=== PATIENT | male | born 1995 | race Caucasian/White ===

== ENCOUNTER 2021-10-16 23:48 | Inpatient (IN) | payer BC ==
[~2021-10-16] VITALS: Ht 172.7 cm; Wt 86.6 kg
--- NOTE | 2021-10-16 23:50 | NUR ---
BIBRA FOR C/O OF TACHYCARDIA AND PALPITATIONS. UPON EMS ARRIVAL HR SUSTAINED IN THE 170S. ADENOSINE GIVEN EN ROUTE BOWL TURNER. DENIES DRUG OR ALCOHOL USE BUT ENDORSES RECENT ADDERAL USE X3 DAYS. LAST TAKEN AT 1500. DENIES ANY C/P OR SOB. CHANGED INTO GOWN AND PLACED ON PURCHASING ASSOCIATE AND PULSE OX AND PT TACHYCARDIC. WAS AT BEDSIDE FOR EVAL.
--- NOTE | 2021-10-16 23:57 | NUR ---
EMT AT BEDSIDE FOR EKG
[2021-10-17] MEDS ORDERED: DILTIAZEM HCL 50 MG IV ONE (00:08)
[2021-10-17] MEDS ORDERED: DILTIAZEM HCL 25 MG IV ONE (00:08)
--- NOTE | 2021-10-17 00:28 | NUR ---
CARDIZEM DRIP INITIATED AT 5MG/HR PER PROTOCOL AT RAC 18G. WILL CONTINUE TO ASSESS HR AND TITRATE PER PROTOCOL.
[2021-10-17] MEDS ORDERED: DILTIAZEM HCL 50 MG IV IV ONE (00:30)
[2021-10-17] MEDS ORDERED: DILTIAZEM HCL IV 125 MG in IV NS 0.9% 100 ML IV PRN (00:30)
--- NOTE | 2021-10-17 00:31 | NUR ---
IVELISSE NORRIS HELD PER MD ORDER.
--- NOTE | 2021-10-17 00:38 | NUR ---
CARDIZEM DRIP REINITIATED PER MD ORDER AT 5MG/HR
--- NOTE | 2021-10-17 00:48 | NUR ---
CARDIZEM DRIP TITRATED FROM 5MG UP TO 10MG PER PROTOCOL DUE TO HR SUSTAINED IN THE 130S.
[2021-10-17] MEDS ORDERED: ACETAMINOPHEN 325 MG TABLET PO PRN (01:00)
[2021-10-17] MEDS ORDERED: ONDANSETRON HCL/PF 4 MG/2 ML VIAL IVP PRN (01:00)
[2021-10-17] MEDS ORDERED: ZOLPIDEM TARTRATE 5 MG TABLET PO PRN (01:00)
[2021-10-17] MEDS ORDERED: MAGNESIUM HYDROXIDE 30 ML UDC PO PRN (01:00)
[2021-10-17] MEDS ORDERED: MAG HYDROX/AL HYDROX/SIMETH 30 ML UDC PO PRN (01:00)
[2021-10-17] MEDS ORDERED: Z GUARD REMEDY 4 OZ OINT TP PRN (01:00)
--- NOTE | 2021-10-17 01:11 | NUR ---
LAB AT BEDSIDE FOR BLOO DRAW
[2021-10-17 01:25] LABS: BASOPHILS % (AUTO) 0.3 % (0.0-2.0); EOSINOPHILS % (AUTO) 0.7 % (0.0-6.0); HEMATOCRIT 44 % (39-51); HEMOGLOBIN 14.8 g/dL (13.5-17.5); LYMPHOCYTES % (AUTO) 19.8 % (20.0-44.0); MEAN CORPUSCULAR HGB CONC 34 g/dl (31.0-36.0); MEAN CORPUSCULAR VOLUME 82 fL (80-96); MONOCYTES # (AUTO) 0.6 K/uL (0.1-1.30); MONOCYTES % (AUTO) 11.1 % (2.0-12.0); NEUTROPHILS # (AUTO) 3.5 K/uL (1.8-8.9); NEUTROPHILS % (AUTO) 68.1 % (43.0-81.0); PLATELET COUNT (AUTO) 152 K/uL (150-450); RED BLOOD CELL COUNT(AUTO) 5.41 MIL/uL (4.5-6.0); WHITE BLOOD COUNT (AUTO) 5.2 K/uL (4.3-11.0)
[2021-10-17 01:42] LABS: D-DIMER 0.19 mg/L(FEU (0.17-0.50)
--- NOTE | 2021-10-17 01:55 | NUR ---
CARDIZEM DRIP TITRATED FROM 10MG UP TO 15MG PER PROTOCOL DUE TO HR SUSTAINED IN THE 130S
[2021-10-17 01:58] LABS: CALCIUM, SERUM 8.9 mg/dL (8.5-10.1); CARBON DIOXIDE 26 mmol/L (21-32); CHLORIDE 105 mmol/L (98-107); CREATININE 0.9 mg/dL (0.6-1.3); GLUCOSE 106 mg/dL (74-106); POTASSIUM 4.2 mmol/L (3.5-5.1); SODIUM SERUM 138 mmol/L (136-145); UREA NITROGEN, BLOOD 13 mg/dL (7-18)
[2021-10-17 02:05] LABS: ALANINE AMINOTRANSFERASE 30 U/L (12-78); ALBUMIN 4.4 g/dL (3.4-5.0); ALKALINE PHOSPHATASE 73 U/L (46-116); ASPARTATE AMINOTRANSFERASE 20 U/L (15-37); BILIRUBIN,DIRECT 0.1 mg/dL (0.0-0.2); BILIRUBIN,TOTAL 0.5 mg/dL (0.2-1.0); TOTAL PROTEIN, SERUM 8.1 g/dL (6.4-8.2)
--- NOTE | 2021-10-17 03:55 | NUR ---
CARDIZEM DRIP TITRATED DOWN [id number] TO 10MG. HR IN 90S.
--- NOTE | 2021-10-17 04:05 | NUR ---
CARDIZEM DRIP TITRATED FROM 10MG TO 5MG PER PROTOCOL. HR MAINTAINED IN 90S.
--- NOTE | 2021-10-17 05:31 | NUR ---
CARDIZEM DRIP TITRATED FROM 5MG TO 10MG PER PROTOCOL. HR increased to 140s
[2021-10-17] MEDS ORDERED: PANTOPRAZOLE 40 MG TABLET.DR PO SCH (07:30)
--- NOTE | 2021-10-17 07:40 | NUR ---
RECEIVED FROM TICKET CLERK, AWAKE, AAOX3, BREATHING EVEN AND NON LABORED, AMBULATED TO THE RESTROOM WITH STEADY GAIT
[2021-10-17] MEDS ORDERED: ACETAMINOPHEN 325 MG TABLET ONE (08:13)
[2021-10-17] MEDS ORDERED: PANTOPRAZOLE 40 MG TABLET.DR PO ONE (08:13)
[2021-10-17] MEDS ORDERED: ENOXAPARIN SODIUM 40 MG/0.4 ML DISP.SYRIN SQ ONE (08:13)
[2021-10-17] MEDS ORDERED: ASPIRIN 81 MG TAB.CHEW ONE (08:14)
--- NOTE | 2021-10-17 08:52 | NUR ---
CARDIZEM DRIP TITRATED FROM 10MG TO 5MG PER PROTOCOL. HR maintains at 80-90
[2021-10-17] MEDS ORDERED: ASPIRIN 81 MG TAB.CHEW PO SCH (09:00)
[2021-10-17] MEDS ORDERED: ENOXAPARIN SODIUM 40 MG/0.4 ML DISP.SYRIN SQ SCH (09:00)
--- NOTE | 2021-10-17 10:50 | NUR ---
SHIRA JAMESON INFORMED THAT PATIENT WANTS TO GO AMA, WAS ADVISED TO SIGN AMA FORM.
--- NOTE | 2021-10-17 11:15 | NUR ---
Patient does not wish to proceed with medical care recommended by Dr. Apple Chapman. Patient given information related to possible complications, up to and including , which could occur as a result of leaving the hospital at this time. Patient verbalizes understanding of risks involved due to leaving against medical advice. Patient has signed AMA form.
--- NOTE | 2021-10-17 11:30 | NUR ---
IV removed. Catheter intact and site benign. Pressure and 4x4 applied to site. No bleeding noted.
[2021-10-17 11:31] VITALS: BP 105/67
== END 2021-10-17 16:10 | disposition left against medical advice (07) | DRG 310 ==
LOC: ER 23:56 → TRANSITION 10-17 06:30
PROVIDERS: ADMIT Student in an Organized Health Care Education/Training Program; ATTEND Nurse Practitioner Acute Care
DX: I48.91 Unspecified atrial fibrillation (principal); F98.8 Other specified behavioral and emotional disorders with onset usually occurring in childhood and adolescence; Z20.822 Contact with and (suspected) exposure to COVID-19
CPT/HCPCS: 36415; 71045-TC; 80048-TC; 80076-TC; 84484-TC; 85025-TC; 85378-TC; 85730-TC; 93307-TC; C9803; G0378; J1650; J3490; J7030